=== PATIENT | male | born 1980 | race Two or more races ===

== ENCOUNTER 2016-11-23 08:12 | Emergency (ER) | payer OTHER ==
[2016-11-23 08:30] VITALS: TEMP 98; BMI 33.9
[2016-11-23] MEDS ORDERED: CLINDAMYCIN 600MG PREMIX IVPB 50 ML IVPB ONE ×2 (08:51→08:53)
[2016-11-23] MEDS ORDERED: morphine CARPU-JECT 4 MG/1 ML DISP.SYRIN IVPUSH ONE (08:51)
--- NOTE | 2016-11-23 08:51 | PDOC ---
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 No head injury, no loss of consciousness. Patient states he has been experiencing an intermittent right upper molar toothache for the past month. He states that his toothache worsened as it remained constant throughout the night, for which he ultimately developed a headache that, as per patient, splits in the middle of his head, throbbing in nature, affecting the right side of his head and neck with a 10/10 in severity. He states that he took Advil and Tylenol this morning, last use was at 04:00 AM, which provided no relief. He denies fever, chills, nausea, vomiting. He reports he does have insurance but does not follow up with a dentist. <Gracy Arenas - Last Filed: 11/23/16 09:07> <Nissa Garcia - Last Filed: 11/23/16 20:16> - General Chief Complaint: Headache Stated Complaint: HEADACHE Time Seen by Provider: 11/23/16 08:30 Past History <Gracy Arenas - Last Filed: 11/23/16 09:07> - Past Medical History Anemia: No Asthma: No Cancer: No Cardiac Disorders: No CVA: No COPD: No CHF: No Dementia: No Diabetes: No GI Disorders: No Disorders: No HTN: No Hypercholesterolemia: No Kidney Stones: No Liver Disease: No Suicide Attempt (Hx): No Seizures: No Thyroid Disease: No - Reproductive History Testicular Surgery: No - Psycho/Social/Smoking Cessation Hx Anxiety: No Suicidal Ideation: No Smoking History: Never smoked Have you smoked in the past 12 months: Yes Number of Cigarettes Smoked Daily: 13 Cigars Per Day: 0 Information on smoking cessation initiated: No 'Breaking Loose' booklet given: 06/13/14 Hx Alcohol Use: No Drug/Substance Use Hx: No Substance Use Type: Alcohol, Cocaine Hx Substance Use Treatment: Yes <Nissa Garcia - Last Filed: 11/23/16 20:16> - Past Medical History Allergies/Adverse Reactions: Allergies Allergy/AdvReac Type Severity Reaction Status Date / Time No Known Allergies Allergy Verified 11/23/16 08:39 Home Medications: Ambulatory Orders Amox-Tr/K Cl [Augmentin - 875Mg Tablet] 1 tab PO BID #14 tablet 11/23/16 Oxycodone HCl/Acetaminophen [Percocet 5-325 mg Tablet] 1 tab PO Q6H PRN #12 tablet MDD 4 tabs 11/23/16 Review of Systems - Review of Systems Able to Perform ROS?: Yes Comments:: 11/23/16 09:01 GENERAL/CONSTITUTIONAL: No fever or chills. No weakness. HEAD, EYES, EARS, NOSE AND THROAT: Yes: Toothache. No change in vision. No ear pain or discharge. No sore throat. NEUROLOGIC: Yes: Headache. No vertigo, loss of consciousness, or change in strength/sensation. <Gracy Arenas - Last Filed: 11/23/16 09:07> *Physical Exam - Vital Signs Last Vital Signs Temp Pulse Resp BP Pulse Ox 98.0 F 70 18 168/96 100 11/23/16 08:19 11/23/16 08:19 11/23/16 08:19 11/23/16 08:19 11/23/16 08:19 <DagobertoGracy - Last Filed: 11/23/16 09:07> - Vital Signs Last Vital Signs Temp Pulse Resp BP Pulse Ox 98.0 F 70 18 168/96 100 11/23/16 08:19 11/23/16 08:19 11/23/16 08:19 11/23/16 08:19 11/23/16 08:19 - Physical Exam Comments: GENERAL: Awake, alert, and fully oriented. In obvious discomfort. HEAD: No signs of trauma. No facial swelling or asymmetry. EYES: PERRLA, EOMI, sclera anicteric, conjunctiva clear ENT: +Dental caries to tooth #1, with tenderness to percussion. No gingival edema or tenderness. Auricles normal inspection, hearing grossly normal, nares patent, oropharynx clear without exudates. Moist mucosa. NECK: Normal ROM, supple, no lymphadenopathy, JVD, or masses NEUROLOGICAL: Cranial nerves II through XII grossly intact. Normal speech, normal gait SKIN: Warm, Dry, normal turgor, no rashes or lesions noted. <Nissa Garcia - Last Filed: 11/23/16 20:16> ED Treatment Course - Medications Given in the ED: ED Medications Discontinued Medications Generic Name Dose Route Start Last Admin Trade Name Constantine PRN Reason Stop Dose Admin Morphine Sulfate 4 mg 11/23/16 08:51 11/23/16 08:58 Morphine Injection - IVPUSH 11/23/16 08:52 4 mg ONCE ONE Administration <Gracy Arenas - Last Filed: 11/23/16 09:07> Medical Decision Making - Medical Decision Making 11/23/16 10:35 Pt improved with pain medication. Given abx in ED. Rx for pain medication and antibiotic. I recommended urgent f/u with a dentist, as the tooth likely needs to be extracted. At present there are no signs of dental abscess. I gave him information for 3 dental urgent care centers, patient agrees to f/u today. <Nissa Garcia - Last Filed: 11/23/16 20:16> *DC/Admit/Observation/Transfer <Gracy Arenas - Last Filed: 11/23/16 09:07> - Discharge Dispostion Admit: No <Nissa Garcia - Last Filed: 11/23/16 20:16> Diagnosis at time of Disposition: Dental caries - Discharge Dispostion Disposition: HOME Condition at time of disposition: Stable - Prescriptions Prescriptions: Amox-Tr/K Cl [Augmentin - 875Mg Tablet] 1 tab PO BID #14 tablet Oxycodone HCl/Acetaminophen [Percocet 5-325 mg Tablet] 1 tab PO Q6H PRN #12 tablet MDD 4 tabs PRN Reason: Severe Pain - Referrals Referrals: Ihsan Brown MD [Non Staff, Medical] - - Patient Instructions Printed Discharge Instructions: DI for Tooth Decay Additional Instructions: Dental urgent care [address] [place] [id number] [place] [address], [id number] [place] [address], [place] [address]
[2016-11-23] MEDS ORDERED: morphine CARPU-JECT 4 MG/1 ML DISP.SYRIN ONE (08:53)
[2016-11-23 11:08] VITALS: BP 135/80; PULSE 75
== END 2016-11-23 11:10 | disposition home or self-care (01) ==
LOC: JER 08:12
PROC: 3E03329 Introduction of Other Anti-infective into Peripheral Vein, Percutaneous Approach (ICD-10-PCS; principal; 2016-11-23)
PROC: 3E033NZ Introduction of Analgesics, Hypnotics, Sedatives into Peripheral Vein, Percutaneous Approach (ICD-10-PCS; 2016-11-23)
DX: K02.9 Dental caries, unspecified (principal)
CPT/HCPCS: 96365; 96375; 99282-25

== ENCOUNTER 2017-08-08 23:02 | Emergency (ER) | payer SELFPAY ==
[2017-08-08 23:18] VITALS: TEMP 98; BMI 37.1
[2017-08-09] MEDS ORDERED: ASPIRIN 81 MG CHEWABLE TABLETS PO ONE (00:28)
--- NOTE | 2017-08-09 00:28 | PDOC ---
History of Present Illness <Shaista Reis - Last Filed: 08/09/17 00:28> - General History Source: Patient Exam Limitations: No Limitations <Betsy Banegas - Last Filed: 08/09/17 01:52> - General Chief Complaint: Pain Stated Complaint: CHEST PAIN Time Seen by Provider: 08/09/17 00:27 - History of Present Illness Initial Comments: 08/09/17 01:47 The patient is a 36 year old male with history of obesity, cocaine and alcohol abuse, who presents to the ED complaining of approximately 1 day of chest pain. The patient describes his chest pain as midsternal, intermittent, squeezing tight pain that is nonradiating and nonmigrating. Pain is associated with tightness and is worse with breathing. This evening he had recurrence of his chest pain while doing nothing in particular. He states this episode lasted longer than other incidents, prompting him to come to the ED. No lightheadedness , palpitations, or peripheral edema. No fever or chills. No nausea, vomiting, or diarrhea. (Betsy Banegas) Past History - Past Medical History Anemia: No Asthma: No Cancer: No Cardiac Disorders: No CVA: No COPD: No CHF: No Dementia: No Diabetes: No GI Disorders: No Disorders: No HTN: No Hypercholesterolemia: No Kidney Stones: No Liver Disease: No Seizures: No Thyroid Disease: No Other medical history: Pt denies - Reproductive History Testicular Surgery: No - Suicide/Smoking/Psychosocial Hx Smoking History: Current every day smoker Have you smoked in the past 12 months: Yes Number of Cigarettes Smoked Daily: 10 Cigars Per Day: 10 Information on smoking cessation initiated: No 'Breaking Loose' booklet given: 06/13/14 Hx Alcohol Use: No Drug/Substance Use Hx: Yes (Cocaine) Substance Use Type: Cocaine Hx Substance Use Treatment: Yes <Shaista Reis - Last Filed: 08/09/17 00:28> <Betsy Banegas - Last Filed: 08/09/17 01:52> - Past Medical History Allergies/Adverse Reactions: Allergies Allergy/AdvReac Type Severity Reaction Status Date / Time No Known Allergies Allergy Verified 08/08/17 23:15 Home Medications: Ambulatory Orders Amox-Tr/K Cl [Augmentin - 875Mg Tablet] 1 tab PO BID #14 tablet 11/23/16 Oxycodone HCl/Acetaminophen [Percocet 5-325 mg Tablet] 1 tab PO Q6H PRN #12 tablet MDD 4 tabs 11/23/16 Cardiac Specific PMH - Complaint Specific PMHX Pacemaker: No <Shaista Reis - Last Filed: 08/09/17 00:28> Review of Systems <Shaista Reis Cristy - Last Filed: 08/09/17 00:28> - Review of Systems Able to Perform ROS?: Yes <Betsy Banegas - Last Filed: 08/09/17 01:52> - Review of Systems Comments:: 08/09/17 01:49 GENERAL/CONSTITUTIONAL: No fever or chills. No weakness. HEAD, EYES, EARS, NOSE AND THROAT: No change in vision. No ear pain or discharge. No sore throat. CARDIOVASCULAR: Chest pain. No peripheral edema, lightheadedness, or palpitations. RESPIRATORY: No cough, wheezing, or hemoptysis. GASTROINTESTINAL: No nausea, vomiting, diarrhea or constipation. GENITOURINARY: No dysuria, frequency, or change in urination. MUSCULOSKELETAL: No joint or muscle swelling or pain. No neck or back pain. SKIN: No rash NEUROLOGIC: No headache, vertigo, loss of consciousness, or change in strength/ sensation. ENDOCRINE: No increased thirst. No abnormal weight change. HEMATOLOGIC/LYMPHATIC: No anemia, easy bleeding, or history of blood clots. ALLERGIC/IMMUNOLOGIC: No hives or skin allergy. (Betsy Banegas) *Physical Exam <Francisco Reiscaroline Muniz - Last Filed: 08/09/17 00:28> <Betsy Banegas - Last Filed: 08/09/17 01:52> - Vital Signs Last Vital Signs Temp Pulse Resp BP Pulse Ox 98.0 F 79 20 151/105 97 08/08/17 23:15 08/08/17 23:15 08/08/17 23:15 08/08/17 23:15 08/08/17 23:15 - Physical Exam Comments: 08/09/17 01:52 GENERAL: Awake, alert, and fully oriented, in no acute distress. Obese. HEAD: No signs of trauma EYES: PERRLA, EOMI, sclera anicteric, conjunctiva clear ENT: Auricles normal inspection, nares patent. Moist mucosa NECK: Normal ROM, supple, no JVD, or masses LUNGS: Breath sounds equal, clear to auscultation bilaterally. No wheezes, and no crackles HEART: Regular rate and rhythm, normal S1 and S2, no murmurs, rubs or gallops ABDOMEN: Soft, nontender, normoactive bowel sounds. No guarding, no rebound. No masses EXTREMITIES: Normal range of motion, no edema. No clubbing or cyanosis. No cords, erythema, or tenderness NEUROLOGICAL: Alert and oriented x 3. Moves all extremities. Face is symmetric. SKIN: Warm, Dry, normal turgor, no rashes or lesions noted. (Betsy Banegas) ED Treatment Course - LABORATORY CBC & Chemistry Diagram: 08/09/17 00:52 08/09/17 00:52 <Betsy Banegas - Last Filed: 08/09/17 01:52> - ADDITIONAL ORDERS Additional order review: Laboratory Results 08/09/17 03 00:52 00:52 PT with INR 10.10 INR 0.89 Sodium 140 Potassium 3.8 Chloride 106 Carbon Dioxide 23 Anion Gap 11 BUN 16 D Creatinine 1.2 D Creat Clearance w eGFR > 60 Random Glucose 172 H D Calcium 8.6 Magnesium 2.4 Total Bilirubin 0.2 AST 44 H D ALT 66 D Alkaline Phosphatase 90 Creatine Kinase 432 H Troponin I < 0.02 Total Protein 7.1 Albumin 3.8 08/09/17 00:52 RBC 4.96 MCV 87.8 MCHC 33.8 RDW 14.3 MPV 8.1 Neutrophils % 63.8 Lymphocytes % 27.6 Monocytes % 4.5 Eosinophils % 3.2 Basophils % 0.9 - Medications Given in the ED: ED Medications Discontinued Medications Generic Name Dose Route Start Last Admin Trade Name Freq PRN Reason Stop Dose Admin Aspirin 162 mg 08/09/17 00:28 08/09/17 00:56 Asa - PO 08/09/17 00:29 162 mg ONCE ONE Administration *DC/Admit/Observation/Transfer <Shaista Reis - Last Filed: 08/09/17 00:28> <Betsy Banegas - Last Filed: 08/09/17 01:52> - Attestations Scribe Attestion: 08/09/17 01:52 Documentation prepared by Betsy Banegas, acting as medical physics professor for Shaista Reis MD. (Makenzie,Betsy)
[2017-08-09] MEDS ORDERED: ASPIRIN 81 MG CHEWABLE TABLETS ONE (00:57)
[2017-08-09 00:59] LABS: BASO % 0.9 % (0-2.0); EOS % 3.2 % (0-4.5); HEMATOCRIT 43.5 % (35.4-49); HEMOGLOBIN 14.7 GM/dL (11.7-16.9); LYMPH % 27.6 % (8-40); MCH 29.7 pg (25.7-33.7); MCHC 33.8 g/dl (32.0-35.9); MEAN CELL VOLUME 87.8 fl (80-96); MEAN PLT VOLUME 8.1 fl (7.5-11.1); MONO % 4.5 % (3.8-10.2); NEUT % 63.8 % (42.8-82.8); PLATELET COUNT 306 K/MM3 (134-434); RBC 4.96 M/mm3 (4.00-5.60); RDW 14.3 % (11.9-15.9); WHITE BLOOD COUNT 14.8 K/mm3 (4.0-10.0)
[2017-08-09 01:16] LABS: INR 0.89 (0.82-1.09); PROTHROMBIN TIME (PATIENT) 10.1 SEC (9.98-11.88)
[2017-08-09 01:27] LABS: ALBUMIN 3.8 g/dl (3.4-5.0); ANION GAP 11 (8-16); BILIRUBIN,TOTAL 0.2 mg/dL (0.2-1.0); BLOOD UREA NITROGEN 16 mg/dL (7-18); CALCIUM 8.6 mg/dL (8.5-10.1); CHLORIDE 106 mmol/L (98-107); CO2 23 mmol/L (21-32); CREATININE 1.2 mg/dL (0.7-1.3); GLUCOSE,RANDOM 172 mg/dL (74-106); MAGNESIUM 2.4 mg/dL (1.8-2.4); POTASSIUM 3.8 mmol/L (3.5-5.1); SGOT/AST 44 U/L (15-37); SGPT/ALT 66 U/L (12-78); SODIUM 140 mmol/L (136-145); TOT PROT 7.1 g/dl (6.4-8.2)
[2017-08-09 01:30] LABS: ALK PHOS 90 U/L (45-117)
[2017-08-09 03:17] LABS: URINE APPEARANCE CLEAR; URINE BILIRUBIN NEGATIVE (NEGATIVE); URINE BLOOD 1+ (NEGATIVE); URINE COLOR YELLOW; URINE GLUCOSE (UA) NEGATIVE (NEGATIVE); URINE KETONE NEGATIVE (NEGATIVE); URINE LEUK ESTERASE NEGATIVE (NEGATIVE); URINE NITRITE NEGATIVE (NEGATIVE); URINE PROTEIN NEGATIVE (NEGATIVE)
[2017-08-09 03:36] LABS: EPI CELLS RARE /HPF (FEW); URINE MUCUS MANY
[2017-08-09 03:50] LABS: COCAINE, UR POSITIVE ng/ml (CUTOFF=300); METHADONE, UR NEGATIVE ng/ml (CUTOFF=300); OPIATES, URI NEGATIVE ng/ml (CUTOFF=300); PHENCYCLIDINE,URINE NEGATIVE ng/ml (CUTOFF=25); URINE AMPHETAMINES NEGATIVE ng/ml (CUTOFF=500); URINE BARBITURATES NEGATIVE ng/ml (CUTOFF=200); URINE BENZODIAZEPINES NEGATIVE ng/ml (CUTOFF=200)
[2017-08-09 08:23] VITALS: BP 124/75; PULSE 76
--- NOTE | 2017-08-09 08:27 | PDOC ---
*Physical Exam - Vital Signs Last Vital Signs Temp Pulse Resp BP Pulse Ox 98.0 F 79 20 151/105 97 08/08/17 23:15 08/08/17 23:15 08/08/17 23:15 08/08/17 23:15 08/08/17 23:15 ED Treatment Course - LABORATORY CBC & Chemistry Diagram: 08/09/17 00:52 08/09/17 00:52 - ADDITIONAL ORDERS Additional order review: Laboratory Results 08/09/17 08/09/17 08/09/17 06:33 03:03 03:00 PT with INR INR Sodium Potassium Chloride Carbon Dioxide Anion Gap BUN Creatinine Creat Clearance w eGFR Random Glucose Calcium Magnesium Total Bilirubin AST ALT Alkaline Phosphatase Creatine Kinase 402 H Creatine Kinase Index CK-MB (CK-2) Troponin I < 0.02 Total Protein Albumin Urine Color Yellow Urine Appearance Clear Urine pH 5.0 Ur Specific [place] 1.032 Urine Protein Negative Urine Glucose (UA) Negative Urine Ketones Negative Urine Blood 1+ H Urine Nitrite Negative Urine Bilirubin Negative Urine Urobilinogen 2.0 Ur Leukocyte Esterase Negative Urine WBC (Auto) 2 Urine RBC (Auto) 2 Ur Epithelial Cells Rare Urine Mucus Many Opiates Screen Negative Methadone Screen Negative Barbiturate Screen Negative Phencyclidine Screen Negative Ur Amphetamines Screen Negative MDMA (Ecstasy) Screen Negative Benzodiazepines Screen Negative Cocaine Screen Positive U Marijuana (THC) Screen Negative 08/09/17 08/09/17 00:52 00:52 PT with INR 10.10 INR 0.89 Sodium 140 Potassium 3.8 Chloride 106 Carbon Dioxide 23 Anion Gap 11 BUN 16 D Creatinine 1.2 D Creat Clearance w eGFR > 60 Random Glucose 172 H D Calcium 8.6 Magnesium 2.4 Total Bilirubin 0.2 AST 44 H D ALT 66 D Alkaline Phosphatase 90 Creatine Kinase 432 H Creatine Kinase Index 0.6 CK-MB (CK-2) 2.884 Troponin I < 0.02 Total Protein 7.1 Albumin 3.8 Urine Color Urine Appearance Urine pH Ur Specific [place] Urine Protein Urine Glucose (UA) Urine Ketones Urine Blood Urine Nitrite Urine Bilirubin Urine Urobilinogen Ur Leukocyte Esterase Urine WBC (Auto) Urine RBC (Auto) Ur Epithelial Cells Urine Mucus Opiates Screen Methadone Screen Barbiturate Screen Phencyclidine Screen Ur Amphetamines Screen MDMA (Ecstasy) Screen Benzodiazepines Screen Cocaine Screen U Marijuana (THC) Screen 08/09/17 00:52 RBC 4.96 MCV 87.8 MCHC 33.8 RDW 14.3 MPV 8.1 Neutrophils % 63.8 Lymphocytes % 27.6 Monocytes % 4.5 Eosinophils % 3.2 Basophils % 0.9 - Medications Given in the ED: ED Medications Discontinued Medications Generic Name Dose Route Start Last Admin Trade Name Constantine PRN Reason Stop Dose Admin Aspirin 162 mg 08/09/17 00:28 08/09/17 00:56 Asa - PO 08/09/17 00:29 162 mg ONCE ONE Administration Medical Decision Making - Medical Decision Making Patient signed out to me in stable condition pending 2nd Troponin which was negative. Counselled the patient on remaining drug free and will DC with Dr. Krishnamurthy for PCP follow up as he does not have a PCP. 08/09/17 08:22 *DC/Admit/Observation/Transfer Diagnosis at time of Disposition: Chest pain in adult - Discharge Dispostion Disposition: HOME Condition at time of disposition: Improved Admit: No - Referrals Referrals: Daniel Krishnamurthy MD [Staff Physician] - - Patient Instructions Printed Discharge Instructions: DI for Chest Pain Additional Instructions: Please stop using drugs. They are bad for you and can kill you. Please follow up with Dr. Krishnamurthy for your primary care needs. Schedule an appointment for next week. Please return to the ED if you have any new or worsening problems. - Post Discharge Activity Forms/Work/School Notes: Back to Work
--- NOTE | 2017-08-09 11:55 | EKG ---
Test Reason : Blood Pressure : / mmHG Vent. Rate : 076 BPM Atrial Rate : 076 BPM P-R Int : 148 ms QRS Dur : 102 ms QT Int : 406 ms P-R-T Axes : 018 053 038 degrees QTc Int : 456 ms NORMAL SINUS RHYTHM NORMAL ECG NO PREVIOUS ECGS AVAILABLE Confirmed by NAMRATA CULVER, TRAMAINE ([id number]) on 08/09/2017 11:54:41 AM Referred By: Confirmed By:TRAMAINE OTT MD
== END 2017-08-09 08:00 | disposition home or self-care (01) ==
LOC: JER 23:02
DX: R07.89 Other chest pain (principal); F14.10 Cocaine abuse, uncomplicated; F10.10 Alcohol abuse, uncomplicated; E66.9 Obesity, unspecified; Z68.37 Body mass index [BMI] 37.0-37.9, adult; F17.210 Nicotine dependence, cigarettes, uncomplicated; Z71.51 Drug abuse counseling and surveillance of drug abuser
CPT/HCPCS: 36415; 71046-TC-FY; 80053; 80307; 81003; 81015; 82550; 82553; 83735; 84484; 85025; 85610; 93005; 93010; 99284-25

== ENCOUNTER 2018-12-13 10:18 | Emergency (ER) | payer SELFPAY | END 2018-12-13 15:49 | disposition home or self-care (01) | LOC: JER 10:18 ==